=== PATIENT | male | born 1940 | race Asian ===

== ENCOUNTER 2016-11-14 09:54 | Day surgery (SDC) | payer OTHER ==
[2016-11-13 15:21] VITALS: Ht 160 cm; Wt 60.0 kg
[~2016-11-14] VITALS: Ht 160 cm; Wt 60.0 kg
[2016-11-14] VITALS (19 sets, daily range): BP systolic 92–142; BP diastolic 42–78; PULSE 46–85; RESP 16–19
[~2016-11-14 09:54] MED LIST: ACET500T98 PO; AMLO-218 PO; DOCU-144 PO; FLUT125C PO; HETASTARCH 6% NACL 500 ML BAG ONE; HYT5 PO; METO-448 PO; ONDA4TAB8 PO; PROC25SU RC; RANI150T5 PO; ZOLP10TA PO
[2016-11-14] MEDS ORDERED: FLUT9.9S NASAL (11:14)
[2016-11-14] MEDS ORDERED: LOSA25TA5 PO (11:14)
[2016-11-14] MEDS ORDERED: [UNRECOGNIZED DRUG - CODE] TP (11:14)
[2016-11-14] MEDS ORDERED: LORA10CA PO (11:14)
[2016-11-14] MEDS ORDERED: ALBUTEROL/IPRATROPIUM (NEB) 3 ML AMP HHN STA (12:34)
--- NOTE | 2016-11-14 12:37 | HPN ---
Date/Time of Note Date/Time of Note DATE: 11/14/16 TIME: 12:36 Interval H&P Admission Note Pt. seen H&P reviewed: Systems changes noted below (patient has a cough. Discussed with anesthesiologist and patient and family to give spinal anesthesia ) VLADIMIR GARDNER MD Nov 14, 2016 12:37
[2016-11-14] MEDS ORDERED: PROPOFOL 40 ML ONE (12:46)
[2016-11-14] MEDS ORDERED: MIDAZOLAM 1 MG/ML 2 ML INJ ONE (12:46)
[2016-11-14] MEDS ORDERED: FENTAnyl 50 MCG/ML VIAL ONE (12:46)
[2016-11-14] MEDS ORDERED: CEFAZOLIN 1 GM INJ ONE (12:57)
[2016-11-14] MEDS ORDERED: ALBUTEROL 0.083% (NEB) 2.5 MG/3 ML AMP ONE (12:59)
[2016-11-14] MEDS ORDERED: PHENYLephrine (100 MCG/ML) 5ML SYG ONE ×3 (13:04→13:41)
[2016-11-14] MEDS ORDERED: METOCLOPRAMIDE 10 MG INJ ONE (13:19)
[2016-11-14] MEDS ORDERED: ONDANSETRON 4 MG INJ ONE (13:19)
[2016-11-14] MEDS ORDERED: DEXAMETHASONE 4 MG/ML 1 ML INJ ONE (13:19)
[2016-11-14] MEDS ORDERED: RACEPINEPHRINE 2.25%(NEB) 0.5 ML AMP ONE (13:43)
[2016-11-14] MEDS ORDERED: IPRATROPIUM (NEB) 0.5 MG/2.5 ML AMP HHN ONE (14:00)
[2016-11-14] MEDS ORDERED: morphine (1 MG/ML) 10ML SYRINGE IV PRN ×3 (14:00)
[2016-11-14] MEDS ORDERED: ONDANSETRON 4 MG INJ IV PRN (14:00)
[2016-11-14] MEDS ORDERED: ALBUMIN HUMAN 5% 250 ML IV PRN (14:00)
[2016-11-14] MEDS ORDERED: LABETALOL HCL 20MG INJ IV PRN (14:00)
[2016-11-14] MEDS ORDERED: EPHEDrine SULFATE 50 MG/5 ML SYG IV PRN (14:00)
[2016-11-14] MEDS ORDERED: hydrALAzine 20 MG INJ IV PRN (14:00)
[2016-11-14] MEDS ORDERED: FENTAnyl 50 MCG/ML VIAL IV PRN ×3 (14:00)
[2016-11-14] MEDS ORDERED: ALBUTEROL 0.5% (NEB) 2.5 MG/0.5 ML AMP INH ONE (14:00)
[2016-11-14] MEDS ORDERED: HYDROCODONE/APAP (5/325) TAB PO PRN (14:30)
--- NOTE | 2016-11-14 15:27 | OPR ---
DATE OF OPERATION: 11/14/2016 PREOPERATIVE DIAGNOSIS: Bladder tumor. POSTOPERATIVE DIAGNOSIS: Bladder tumor. OPERATION PERFORMED: Cystoscopy, transurethral resection of bladder tumor. TECHNIQUE: The patient was brought to the operating room. The patient was given spinal anesthesia because he was coughing. Then, the patient was given 2 grams of Ancef IV at the start of the proced ure. The patient was then positioned in the lithotomy position. The genital area was prepped and d raped in the usual sterile manner. The urethral meatus was dilated with the Hughes dilators up t o #30 [place]. Then, #26 [place] bipolar resectoscope sheath was introduced under direct vision throu gh the penile urethra all the way to the bladder. Once in the bladder, the tumor was identified and located on the right side lateral and proximal to the right ureteral orifice but within 0.5 cm from it. I then wanted to resect the tumor with a bipolar machine; however, the bipolar machine did not function. Therefore, I removed the bipolar resectoscope and used a monopolar resectoscope. I used the 28 [place] resectoscope sheath the standard one and then resected the tumor. The tumor was resec sylvester. The base and the edges of the tumor were electrocoagulated. Good hemostasis was obtained. At the end of the procedure, there was no tissue inside the bladder and there was no bleeding. The re sectoscope was removed and the #22 [place] 30 mL balloon Eric catheter, 3-way, was inserted into the bladder and connected to a drainage bag. The irrigation port was plugged with a catheter plug. I just used a 3-way just in case I have to do continuous irrigation. The patient tolerated the proced ure well and was transferred to the recovery room in stable and satisfactory condition. Dictated By: VLADIMIR FINLEY/VIRGEN Conf#: [id number] DID#: [id number]
== END 2016-11-14 16:50 | disposition home or self-care (01) ==
LOC: SDS 09:54
PROVIDERS: ATTEND Urology
DX: C67.5 Malignant neoplasm of bladder neck (principal); I10 Essential (primary) hypertension
CPT/HCPCS: 52500; 87086; 88305; 94664; J0690; J1100; J2250; J2370; J2405; J3010; Z7512; Z7610; J2765